=== PATIENT | female | born 1955 | race Caucasian/White ===

== ENCOUNTER → 2019-04-20 | Outpatient (CLI) | payer MEDICARE ==
--- NOTE | 2019-04-23 11:00 | MM ---
Reason for exam: screening (asymptomatic). Last mammogram was performed 2 years ago. History: Patient is postmenopausal. Physical Findings: A clinical breast exam by your physician is recommended on an annual basis and results should be correlated with mammographic findings. MG Screening Mammo w CAD Bilateral CC and MLO view(s) were taken. XCCL view(s) were taken of the right breast. Prior study comparison: April 16, 2017, bilateral MG screening mammo w CAD. April 06, 2016, bilateral MG screening mammo w CAD. There are scattered fibroglandular densities. There are benign appearing round calcifications bilaterally. There is no discrete abnormality. ASSESSMENT: Benign, BI-RAD 2 RECOMMENDATION: Routine screening mammogram of both breasts in 1 year.
== END | disposition home or self-care (01) ==
LOC: RADMAMWWP 15:23
PROVIDERS: ATTEND Internal Medicine
DX: Z12.31 Encounter for screening mammogram for malignant neoplasm of breast (principal)
CPT/HCPCS: 77067

== ENCOUNTER → 2023-02-14 | Outpatient (CLI) | payer MEDICARE ==
--- NOTE | 2023-02-14 09:46 | MM ---
Reason for Exam: Screening (asymptomatic). Last mammogram was performed 3 year(s) and 10 month(s) ago. Patient History: Menarche at age 12. First Full-Term at age 18. Postmenopausal. Risk Values: Salud 5 year model risk: 1.4%. NCI Lifetime model risk: 4.1%. Prior Study Comparison: 04/06/2016 Bilateral Screening Mammogram, [facility]. 04/16/2017 Bilateral Screening Mammogram, [facility]. 04/20/2019 Bilateral Screening Mammogram, [facility]. Tissue Density: There are scattered fibroglandular densities. Findings: Analyzed By CAD. Right breast: More prominent asymmetry right breast posterior depth upper outer aspect 15 mm in dimension measuring 11.4 cm from the nipple. Left breast: There is no suspicious group of microcalcifications or new suspicious mass. Overall Assessment: Incomplete: need additional imaging evaluation, BI-RAD 0 Management: Diagnostic Mammogram of the right breast. [facility] will attempt to contact patient to return for supplemental views and ultrasound if indicated. Patient should continue monthly self-breast exams. A clinical breast exam by your physician is recommended on an annual basis. This exam should not preclude additional follow-up of suspicious palpable abnormalities. Note on Salud scores and lifetime risk: 1. A Salud score greater than 3% is considered moderate risk. If this is the case, consider specialist referral to assess eligibility for a risk reducing agent. 2. If overall lifetime risk for the development of breast cancer is 20% or higher, the patient may qualify for future screening with alternating mammogram and breast MRI. Electronically signed and approved by: Mike Carbone DO
== END | disposition home or self-care (01) ==
LOC: RADMAMWWP 08:07
PROVIDERS: ATTEND Internal Medicine
DX: Z12.31 Encounter for screening mammogram for malignant neoplasm of breast (principal); Z78.0 Asymptomatic menopausal state
CPT/HCPCS: 77067

== ENCOUNTER → 2023-02-27 | Outpatient (CLI) | payer MEDICARE ==
--- NOTE | 2023-02-27 09:48 | MM ---
Reason for Exam: Additional evaluation requested from abnormal screening. Last screening mammogram was performed less than 1 month ago. Patient History: Menarche at age 12. First Full-Term at age 18. Postmenopausal. Risk Values: Salud 5 year model risk: 1.4%. NCI Lifetime model risk: 4.1%. Prior Study Comparison: 08/17/2003 Bilateral Diagnostic Mammogram, [facility]. 09/01/2003 Right Diagnostic Ultrasound, [facility]. 09/05/2004 Bilateral Diagnostic Mammogram, [facility]. 09/07/2005 Bilateral Screening Mammogram, [facility]. 09/11/2005 Right Diagnostic Mammogram, [facility]. 08/19/2007 Bilateral Screening Mammogram, [facility]. 10/05/2009 Bilateral Screening Mammogram, [facility]. 12/10/2011 Bilateral Screening Mammogram, [facility]. 04/06/2016 Bilateral Screening Mammogram, [facility]. 04/16/2017 Bilateral Screening Mammogram, [facility]. 04/20/2019 Bilateral Screening Mammogram, [facility]. 02/14/2023 Bilateral MG screening mammo w CAD, [facility]. Tissue Density: Right: There are scattered fibroglandular densities. Findings: Analyzed By CAD. 1.5 cm circumscribed low density mass posterior depth 9:00 position right breast has slightly enlarged from 1.2 cm in 2016 and is now slightly more defined. Further ultrasound evaluation recommended. Overall Assessment: Incomplete: need additional imaging evaluation, BI-RAD 0 Management: Diagnostic Breast Ultrasound of the right breast. Electronically signed and approved by: Juan Dodson M.D. Radiologist
--- NOTE | 2023-02-27 10:13 | USB ---
Reason for Exam: Additional evaluation requested from abnormal screening. Patient History: Menarche at age 12. First Full-Term at age 18. Postmenopausal. Risk Values: Salud 5 year model risk: 1.4%. NCI Lifetime model risk: 4.1%. Technique: Method: Targeted. Prior Study Comparison: 04/16/2017 Bilateral Screening Mammogram, [facility]. 04/20/2019 Bilateral Screening Mammogram, [facility]. 02/14/2023 Bilateral MG screening mammo w CAD, [facility]. Findings: The lateral section of the breast of the right breast, the axilla of the right breast and the retroareolar of the right breast were scanned. Targeted ultrasound lateral right breast 8-10 o'clock including the subareolar region and axilla. There is a benign oval 1.2 cm cyst here with corresponds well to the mammographic finding. No other solid or cystic lesion or axillary lymphadenopathy. Overall Assessment: Benign, BI-RAD 2 Management: Screening Mammogram of both breasts in 1 year. A clinical breast exam by your physician is recommended on an annual basis and results should be correlated with mammographic findings. This exam should not preclude additional follow-up of suspicious palpable abnormalities. Results were given to the patient verbally at the time of exam. Electronically signed and approved by: Juan Dodson M.D. Radiologist
== END | disposition home or self-care (01) ==
LOC: RADMAMWWP 09:19
PROVIDERS: ATTEND Internal Medicine
DX: R92.321 Mammographic fibroglandular density, right breast (principal); R92.8 Other abnormal and inconclusive findings on diagnostic imaging of breast; Z78.0 Asymptomatic menopausal state
CPT/HCPCS: 77065; 76642; G0279; 77061

== ENCOUNTER → 2024-04-06 | Outpatient (CLI) | payer MEDICARE ==
--- NOTE | 2024-04-06 11:56 | MM ---
Reason for Exam: Screening (asymptomatic). Last mammogram was performed 1 year(s) and 2 month(s) ago. Patient History: Menarche at age 12. First Full-Term at age 18. Postmenopausal. Risk Values: Salud 5 year model risk: 1.4%. NCI Lifetime model risk: 4.0%. Prior Study Comparison: 04/20/2019 Bilateral Screening Mammogram, [facility]. 02/14/2023 Bilateral MG screening mammo w CAD, [facility]. 02/27/2023 Right MG 3D work up w/cad RT, [facility]. Tissue Density: There are scattered areas of fibroglandular density. Findings: Analyzed By CAD. Right breast: There is no suspicious group of microcalcifications or new suspicious mass. Left breast: There is no suspicious group of microcalcifications or new suspicious mass. Overall Assessment: Negative, BI-RAD 1 Management: Screening Mammogram of both breasts in [address] [facility] will attempt to contact patient to return for supplemental views and ultrasound if indicated. Patient should continue monthly self-breast exams. A clinical breast exam by your physician is recommended on an annual basis. This exam should not preclude additional follow-up of suspicious palpable abnormalities. Note on Salud scores and lifetime risk: 1. A Salud score greater than 3% is considered moderate risk. If this is the case, consider specialist referral to assess eligibility for a risk reducing agent. 2. If overall lifetime risk for the development of breast cancer is 20% or higher, the patient may qualify for future screening with alternating mammogram and breast MRI. [facility], , 04/06/2024 11:53 AM. Electronically signed and approved by: Mike Carbone DO
== END | disposition home or self-care (01) ==
LOC: RADMAMWWP 08:04
PROVIDERS: ATTEND Internal Medicine
DX: Z12.31 Encounter for screening mammogram for malignant neoplasm of breast (principal); R92.323 Mammographic fibroglandular density, bilateral breasts; Z78.0 Asymptomatic menopausal state
CPT/HCPCS: 77063; 77067